=== PATIENT | male | born 1950 | race African-American/Black ===

== ENCOUNTER 2023-10-17 13:29 | Emergency (ER) | payer BC ==
[~2023-10-17] VITALS: Ht 182.9 cm; Wt 86.0 kg
[2023-10-17 13:35] VITALS: O2SAT 95
[2023-10-17 15:25] LABS: BASOPHILS % 1.2 % (0.0-2.0); EOSINOPHILS % 1.6 % (0.0-5.0); HEMATOCRIT. 21.7 % (42.0-52.0); HEMOGLOBIN. 7.1 g/dL (14.0-18.0); LYMPHOCYTES % 24.5 % (20.0-50.0); MEAN CORPUSCULAR HEMOGLOBIN 29.2 pg (28.0-32.0); MEAN CORPUSCULAR HGB CONC 32.9 g/dL (31.0-37.0); MEAN CORPUSCULAR VOLUME 88.6 fL (80.0-94.0); MEAN PLATELET VOLUME 8.7 fl (7.4-10.4); MONOCYTES % 7.8 % (2.0-8.0); NEUTROPHILS % 64.9 % (40.0-76.0); PLATELET 148 x1000/uL (130-400); RED BLOOD CELL COUNT 2.45 mill/uL (4.7-6.1); RED CELL DISTRIBUTION WIDTH 15.4 % (11.6-14.6); WHITE BLOOD COUNT 4.2 x1000/uL (4.5-11.0)
[2023-10-17 15:44] LABS: ALANINE AMINOTRANSFERASE 11 IU/L (10-49); ALBUMIN 4.1 g/dL (3.2-4.8); ASPARTATE AMINOTRANSFERASE 17 IU/L (<34); BILIRUBIN TOTAL 0.4 mg/dL (0.1-1.0); CALCIUM 9.8 mg/dL (8.7-10.4); CARBON DIOXIDE 36 mEq/L (21-32); CHLORIDE 87 mEq/L (98-107); GLUCOSE 222 mg/dL (70-105); POTASSIUM 3.2 mEq/L (3.5-5.1); SODIUM 130 mEq/L (136-145); UREA NITROGEN BLOOD 22 mg/dL (9-23)
[2023-10-17 15:45] LABS: FIBRINOGEN 386 mg/dL (200-400); PARTIAL THROMBOPLASTIN TIME < 21.0 sec (23.4-31.0)
[2023-10-17 15:52] LABS: CREATININE 5.7 mg/dL (0.6-1.3)
[2023-10-17 19:58] VITALS: BP 130/66; PULSE 74; RESP 20; TEMP 98.9
== END 2023-10-17 22:59 | disposition home or self-care (01) ==
LOC: ER 13:48
DX: D64.9 Anemia, unspecified (principal); Z99.2 Dependence on renal dialysis
CPT/HCPCS: 36415; 36430; 80053; 85025; 85384; 86850; 86900; 86920; 99285; P9016